=== PATIENT | female | born 2000 | race Caucasian/White ===

== ENCOUNTER 2020-12-06 17:39 | Emergency (ER) | payer BC ==
[~2020-12-06] VITALS: Ht 162.6 cm; Wt 65.8 kg
[2020-12-06 17:56] VITALS: BP 124/80
--- NOTE | 2020-12-06 18:04 | NUR ---
PT SENT TO LOBBY
--- NOTE | 2020-12-06 19:00 | NUR ---
20/F BIB BOYFRIEND WITH C/O ANXIETY AND NUMBNESS SINCE YESTERDAY. STATES SHE WAS AT AN AMUSEMENT PARK LAST NIGHT AND FELT ANXIOUS AND NUMBNESS TO HER RIGHT FACE AND BODY. STATES SHE HAS HAD EPISODES SIMILAR TO THIS IN THE PAST AND WAS GIVEN RX OF "ANXIETY MEDICATION" BUT STATES "I DONT LIKE HOW THEY MAKE ME FEEL." PT ALSO STATES SHE HAS HAD INTERMITTENT HEADACHE SINCE YESTERDAY, REPORTS TAKING TYLENOL WITH NO RELIEF. DENIES SOB, COUGH, FEVER OR CHILLS.
[2020-12-06] MEDS: diphenhydrAMINE 50 MG/ML VIAL IM ONE (19:27)
[2020-12-06] MEDS: KETOROLAC 30 MG/ML VIAL IM ONE (19:27)
[2020-12-06] MEDS ORDERED: ATI.5 PO (19:49)
[2020-12-06] MEDS ORDERED: NAPR-54 PO (19:49)
[2020-12-06 21:09] VITALS: BP 119/76
--- NOTE | 2020-12-06 21:10 | NUR ---
Patient discharged with v/s stable. Written and verbal after care instructions given and explained. Patient verbalized understanding. Ambulatory with steady gait. All questions addressed prior to discharge. Advised to follow up with PMD.
== END 2020-12-06 21:10 | disposition home or self-care (01) ==
LOC: MED 17:39
DX: F41.9 Anxiety disorder, unspecified (principal); G43.909 Migraine, unspecified, not intractable, without status migrainosus; Z79.899 Other long term (current) drug therapy
CPT/HCPCS: 81025; 96372; 99284; J1200; J1885; 81002